=== PATIENT | female | born 1965 | race Caucasian/White ===

== ENCOUNTER 2022-06-03 08:34 | Emergency (ER) | payer OTHER, SELFPAY ==
[2022-06-03 08:42] VITALS: BP 123/62; PULSE 81; RESP 16; TEMP 36.9; O2SAT 98
--- NOTE | 2022-06-03 09:18 | ED.URI ---
HPI - URI/Sore Throat General Chief Complaint: Upper Respiratory Infection Stated Complaint: sore throat cough congestion Time Seen by Provider: 06/03/22 09:18 Source: patient, RN notes reviewed and old records reviewed Mode of arrival: ambulatory Limitations: no limitations History of Present Illness HPI Narrative: 56 year old female who presents to [facility] with complaints of flu symptoms since Monday which included headaches, fevers, body aches, with temperatures of between 102F-103F. Patient here today because of acute sore throat especially on right side of throat with fevers around 99.3F since yesterday. Patient has had Covid vaccinations and also flu shot. Patient reports that she has taken DayQuil and Advil for her symptoms. MD elicited complaint: cough and sore throat Onset (ago): day(s) (5) Pain scale (0-10): 7 Treatments prior to arrival: ibuprofen and other (Dayquil) Related Data Home Medications Medication Instructions Recorded Confirmed atorvastatin 40 mg tablet 40 mg PO DAILY 06/03/22 06/03/22 gabapentin 300 mg capsule 300 mg PO DAILY 06/03/22 06/03/22 topiramate 25 mg tablet 25 mg PO DAILY 06/03/22 06/03/22 venlafaxine 37.5 mg 37.5 mg PO DAILY 06/03/22 06/03/22 capsule,extended release 24 hr Allergies Allergy/AdvReac Type Severity Reaction Status Date / Time No Known Allergies Allergy Verified 06/03/22 09:04 Review of Systems Review of Systems: CONSTITUTIONAL: Reports malaise, chills, sweats, or fever. EYES: Denies visual changes, redness, or discharge. ENT: Reports rhinorrhea, congestion, sinus pain, no otalgia, positive for sore throat. CARDIOVASCULAR: Denies chest pain, palpitations, or edema. RESPIRATORY: Reports occasional cough.? Denies dyspnea. GASTROINTESTINAL: Denies abdominal pain, nausea, vomiting, diarrhea SKIN: Denies rash or itching. MUSCULOSKELETAL: reports myalgia. NEUROLOGIC: Reports headache. All systems reviewed & are unremarkable except as noted in HPI and below PMFSH Past Medical History Medical History (Updated 06/06/22 @ 09:04 by Nidia Craig NP) Anxiety and depression Elevated cholesterol Migraine Surgical History Surgical History (Updated 06/06/22 @ 09:02 by Nidia Craig NP) History of hysterectomy History of tonsillectomy Social History Social History (Updated 06/06/22 @ 09:03 by Nidia Craig NP) Smoking status: Never smoker Alcohol intake: unknown Substance use type: does not use Gender identity (if verbalized by the patient): Female Comments At time of signature, agree with nursing past medical, surgical, social and family history. There is no relevant family history pertinent to the presenting complaint Exam Narrative: GENERAL: Well-appearing, well-nourished, and in no acute distress. HEAD: Normocephalic EYES: PERRLA, conjunctivae clear ENT: Nares clear, turbinates edematous and erythematous, clear discharge. Mucous membranes moist. TM pearly gil with dull light reflex bilaterally; no tragal tenderness. Oropharynx erythematous without lesions. Tonsils not present with exudates to right side of throat noted and swelling, no drooling, no hoarseness, no trismus, uvula midline. NECK: Supple. lymphadenopathy right neck CHEST: Clear to auscultation, breath sounds equal. No wheezing, rhonchi, rales, or stridor. No respiratory distress, speaks in full sentences.SAO2 98% on room air HEART: Regular rate and rhythm. No murmur heard. SKIN: Warm, dry, no rash. NEURO: Alert and oriented x3. PSYCH: Normal mood and affect Course Course Emergency Course: Patient is aware of diagnosis, understands and agrees to treatment plan.? Anticipatory guidance given.? Patient agrees to follow-up as directed and is aware of reasons to seek care at the emergency department. Portions of this record may have been created with voice recognition software Level of Care: Express Care Visit Vital Signs Vital signs:
== END 2022-06-03 09:36 | disposition home or self-care (01) ==
PROVIDERS: Emergency Provider Registered Nurse; PCP Family Medicine
DX: J02.0 Streptococcal pharyngitis (principal)
CPT/HCPCS: 99213; G0463